=== PATIENT | male | born 2000 | race Caucasian/White ===

== ENCOUNTER 2021-07-26 21:17 | Emergency (ER) | payer OTHER ==
[~2021-07-26] VITALS: Ht 157.5 cm; Wt 77.1 kg
[~2021-07-26 21:17] MED LIST: ALBU4; BENZ100A PO; CLOR7.5 PO; COMBIVENT RESPIM4 GM INH; FLUSAL1005 INH; Focalin Xr15 MG PO; GUANFACINE HCL E1 MG PO; HYDHCL25 PO; Prozac20 MG; RISP.25 PO; TOPI50 PO; [UNRECOGNIZED DRUG - OTHER] SQ
[2021-07-26] MEDS ORDERED: DIVA500ER PO (22:00)
[2021-07-26] MEDS ORDERED: CLON1 PO (22:01)
== END 2021-07-26 22:34 | disposition home or self-care (01) ==
LOC: ER 21:17
DX: S93.401A Sprain of unspecified ligament of right ankle, initial encounter (principal); S83.91XA Sprain of unspecified site of right knee, initial encounter; Z79.899 Other long term (current) drug therapy; X50.1XXA Overexertion from prolonged static or awkward postures, initial encounter; Y93.67 Activity, basketball
CPT/HCPCS: 29505; 73610; 96372-59; 99283-25; J1885; L1906